=== PATIENT | female | born 1950 | race Caucasian/White ===

== ENCOUNTER → 2021-04-09 15:02 | Outpatient (CLI) | payer MEDICARE, SELFPAY ==
--- NOTE | 2021-04-09 | DI.CT.S_ITS ---
PROCEDURE: CT UE LT WO CON INDICATIONS: Primary osteoarthritis, left shoulder TECHNIQUE: Noncontrast 0.8 mm thick sections acquired from the acromioclavicular joint to the inferior scapula, with coronal and sagittal reformatting. COMPARISON: None. FINDINGS: Image quality: Excellent. Bones: No acute fracture or dislocation. Mild degenerative changes are seen at the glenohumeral joint with mild joint space narrowing and spurring along the anterior and inferior glenoid. [id number] degenerative changes are seen at the acromioclavicular joint. Mild degenerative changes are seen at the left sternoclavicular joint. The visualized ribs are intact. Mild degenerative changes are seen in the lower cervical spine. Soft tissues: There is a moderate glenohumeral effusion. The rotator cuff musculature is normal in bulk. However, the tendons, ligaments, labrum, and articular cartilages are not well visualized on standard unenhanced CT. The included portions of the lungs demonstrate no acute abnormality. IMPRESSION: 1. Degenerative changes at the glenohumeral joint with partial-thickness joint space narrowing and mild marginal osteophyte formation. Moderate glenohumeral effusion. 2. 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 Dictated by: Charbel Smith M.D. on 04/09/2021 at 20:17 Approved by: Charbel Smith M.D. on 04/09/2021 at 20:26
== END ==
PROVIDERS: Referring Provider Orthopaedic Surgery Sports Medicine; Visit Provider Orthopaedic Surgery Sports Medicine
DX: M19.012 Primary osteoarthritis, left shoulder (principal)
CPT/HCPCS: 73200